=== PATIENT | female | born 1990 | race Caucasian/White ===

== ENCOUNTER 2017-10-06 13:26 | Emergency (ER) | payer SELFPAY ==
[~2017-10-06] VITALS: Ht 180.3 cm; Wt 121.3 kg
[~2017-10-06 13:26] MED LIST: ATIVAN0.5 MG PO; FLEXERIL10 MG PO; LEVAQUIN500 MG PO; MOBIC7.5 MG PO; MOTRIN800 MG PO; NEXPLANON68 MG SC
[2017-10-06 13:32] VITALS: BP 132/87
[2017-10-06] MEDS ORDERED: KEFLEX500 MG PO (14:50)
[2017-10-06] MEDS ORDERED: NAPROSYN500 MG PO (14:50)
== END 2017-10-06 15:06 | disposition home or self-care (01) ==
LOC: EME 13:26
DX: L03.313 Cellulitis of chest wall (principal)
CPT/HCPCS: 99281; 99283